=== PATIENT | male | born 1970 | race Caucasian/White ===

== ENCOUNTER → 2018-06-13 | Outpatient (CLI) | payer OTHER | LOC: GMAJS 20:20 | PROVIDERS: ATTEND Physician Assistant | DX: L03.818 Cellulitis of other sites (principal) ==

== ENCOUNTER 2019-04-24 02:53 | Emergency (ER) | payer OTHER ==
--- NOTE | 2019-04-24 03:36 | ED.PDOC ---
History of Present Illness - General Chief Complaint: Blood Pressure Problem Stated Complaint: headache, blurred vision, suicidal ideation Time Seen by Provider: 04/24/19 03:24 Source: patient Exam Limitations: no limitations - History of Present Illness Initial Comments: Pt has depression and has had suicidal thoughts for unknown period of time. Pt has no plan but wants help. He is afraid that he has schizophrenia like his brother. He sometimes has auditory halucinations Timing/Duration: intermittent Severity: severe Associated Symptoms: anxiety, impaired concentration, suicidal ideation Allergies/Adverse Reactions: Allergies NO KNOWN ALLERGY Allergy (Verified 04/24/19 03:22) Home Medications: Ambulatory Orders NK 04/24/19 Review of Systems - Review of Systems Constitutional: States: no symptoms reported EENTM: States: no symptoms reported Respiratory: States: no symptoms reported Cardiology: States: no symptoms reported Gastrointestinal/Abdominal: States: no symptoms reported Genitourinary: States: no symptoms reported Neurological: States: depressed, emotional problems, headache Endocrine: States: no symptoms reported Hematologic/Lymphatic: States: no symptoms reported Past Medical History (General) - Patient Medical History Hx Seizures: No Hx Stroke: No Hx Dementia: No Hx Asthma: No Hx of COPD: No Hx Cardiac Disorders: No Hx Congestive Heart Failure: No Hx Pacemaker: No Hx Hypertension: Yes - untreated Hx Thyroid Disease: No Hx Diabetes: No Hx Gastroesophageal Reflux: No Hx Renal Disease: No Hx of HIV: No Hx MRSA: No Surgical History: no surgical history - Vaccination History Hx Tetanus, Diphtheria Vaccination: No Hx Influenza Vaccination: No - Social History Hx Tobacco Use: Yes - quit 6 months ago Hx Alcohol Use: Yes - quit 2 years ago Family Medical History - Family History Brother Living Status: Still Living Hx Family;Other: psych disorders Physical Exam - Physical Exam General Appearance: Alert, Restless Eyes, Ears, Nose, Throat Exam: PERRL/EOMI Neck: non-tender, full range of motion, normal inspection Respiratory: chest non-tender, lungs clear, normal breath sounds Cardiovascular/Chest: normal peripheral pulses, regular rate, rhythm, no edema Gastrointestinal/Abdominal: normal bowel sounds, non tender, soft Extremities Exam: non-tender Neurological: alert, anxious, depressed affect Appearance: appropriate appearance Behavior/Eye Contact/Speech: cooperative, avoids eye contact Thoughts/Hallucinations: auditory hallucinations Skin Exam: normal color, warm/dry Progress - Progress Progress: 04/24/19 05:54 [facility] saw and interviewed pt. He agrees to go to [facility] in [place] - EKG/XRAY/CT EKG: Sinus, no ST T wave changes Comments: rate 78, MT 156, QRS 80, QTc 430 Departure - Departure Clinical Impression: Depressed affect, Suicidal thoughts Disposition: Discharge to Home or Self Care Condition: Fair Departure Forms: ED Discharge - Pt. Copy, Patient Portal Self Enrollment Instructions: DI for High Blood Pressure, DI for Headache, DI for Eye Pain, DI for Psychosis Home Medications: Ambulatory Orders NK 04/24/19
[2019-04-24 06:19] VITALS: BP 145/96; TEMP 97.6; O2SAT 99
== END 2019-04-24 06:21 | disposition home or self-care (01) ==
LOC: ER 02:53
DX: R45.851 Suicidal ideations (principal); F32.9 Major depressive disorder, single episode, unspecified; I10 Essential (primary) hypertension; Z81.8 Family history of other mental and behavioral disorders; Z87.891 Personal history of nicotine dependence

== ENCOUNTER 2020-05-29 16:14 | Emergency (ER) | payer OTHER ==
[2020-05-29 16:33] VITALS: BP 136/97; TEMP 96.9; O2SAT 97
[2020-05-29] MEDS ORDERED: SODIUM CHLORIDE 0.9% 1000ML 1,000 ML IVS ONE (17:32)
--- NOTE | 2020-05-29 18:11 | ED.PDOC ---
History of Present Illness - General Chief Complaint: Behavioral / Psych Stated Complaint: "nervous breakdown" Time Seen by Provider: 05/29/20 17:05 Source: patient, RN notes reviewed, Vital Signs reviewed, family - History of Present Illness Initial Comments: 50 y/o male brought by significant other for "nervous breakdown". He reports that a lot of stuff is going on. right now. Interviewing him is very time consuming because of his long pauses and halting speech. Many of his answers are so vague as to be not helpful. He denies drugs or alcohol. denies suicidal or homicidal thoughts or intent. He has worked in a very hot environment doing metal fabrication but on wednesday he stood by the time clock motionless and his friend took him home. Allergies/Adverse Reactions: Allergies NO KNOWN ALLERGY Allergy (Verified 04/24/19 03:22) Home Medications: Ambulatory Orders NK 04/24/19 Review of Systems - Review of Systems Constitutional: States: malaise, weakness EENTM: States: no symptoms reported Respiratory: States: no symptoms reported Cardiology: States: no symptoms reported Genitourinary: States: other - vomited yesterday Musculoskeletal: States: no symptoms reported Skin: States: no symptoms reported Neurological: States: see HPI, depressed, emotional problems, headache, weakness Past Medical History (General) - Patient Medical History Hx Seizures: No Hx Stroke: No Hx Dementia: No Hx Asthma: No Hx of COPD: No Hx Cardiac Disorders: No Hx Congestive Heart Failure: No Hx Pacemaker: No Hx Hypertension: Yes - untreated Hx Thyroid Disease: No Hx Diabetes: No Hx Gastroesophageal Reflux: No Hx Renal Disease: No Hx of HIV: No Hx MRSA: No - Vaccination History Hx Tetanus, Diphtheria Vaccination: No Hx Influenza Vaccination: No - unknown Hx Pneumococcal Vaccination: - unknown - Social History Hx Tobacco Use: Yes Hx Alcohol Use: Yes - quit 2 years ago Family Medical History - Family History Brother Living Status: Still Living Hx Family;Other: psych disorders Physical Exam - Physical Exam General Appearance: Alert, No apparent distress, Other Eyes, Ears, Nose, Throat Exam: PERRL/EOMI, normal ENT inspection, pharynx normal Neck: non-tender, full range of motion, supple, normal inspection Respiratory: chest non-tender, lungs clear, normal breath sounds, no respiratory distress, no accessory muscle use, respiratory distress Cardiovascular/Chest: normal peripheral pulses, regular rate, rhythm, no gallop, no JVD, no murmur Gastrointestinal/Abdominal: normal bowel sounds, non tender, soft, no organomegaly Extremities Exam: non-tender, no edema, other - gait normal Neurological: depressed affect, flat Appearance: appropriate appearance, other - reticent or unable to talk in detail about his concerns. denies audio or visual hallucinations Thoughts/Hallucinations: no apparent hallucination Skin Exam: normal color, warm/dry Progress - Progress Progress: 05/29/20 18:58 notified of test results. His kids are coming to take him home to [place] and plan to help him get treatment. He declines any further treatment or evaluation Departure - Departure Clinical Impression: Psychological stress, Depressed affect Time of Disposition: 19:00 Disposition: Discharge to Home or Self Care Condition: Good Departure Forms: ED Discharge - Pt. Copy, Patient Portal Self Enrollment Instructions: DI for Psychosis, Depression Home Medications: Ambulatory Orders NK 04/24/19
== END 2020-05-29 19:16 | disposition home or self-care (01) ==
LOC: ER 16:14
DX: F43.9 Reaction to severe stress, unspecified (principal); F32.9 Major depressive disorder, single episode, unspecified; R51 Headache; I10 Essential (primary) hypertension; Z87.891 Personal history of nicotine dependence